=== PATIENT | male | born 1955 | race Caucasian/White ===

== ENCOUNTER 2019-07-21 08:22 | Day surgery (SDC) | payer BC, OTHER ==
[2019-07-20 13:39] VITALS: BMI 33.0
[2019-07-21] MEDS ORDERED: PROPOFOL 20 ML ONE (11:15)
[2019-07-21] MEDS ORDERED: ceFAZolin SODIUM 1 GM VIAL IVPB ONE (11:35)
[2019-07-21] MEDS ORDERED: IOHEXOL 300 MG/ML INFUS..BTL IV ONE (11:41)
[2019-07-21] MEDS ORDERED: PROMETHAZINE HCL 25 MG/1 ML VIAL IVPB PRN (12:36)
[2019-07-21] MEDS ORDERED: oxyCODONE HCL 5 MG TABLET PO PRN (12:36)
[2019-07-21] MEDS ORDERED: ONDANSETRON 4 MG/2 ML VIAL IVPUSH PRN (12:36)
--- NOTE | 2019-07-21 12:39 | OP ---
Operative Note - Note: Operative Date: 07/21/19 Pre-Operative Diagnosis: rt. hydronephrosis, rt. ureteral stone Operation: LULL WITH JJ STENT Post-Operative Diagnosis: Same as Pre-op Surgeon: Yessy Leon Anesthesia: General Specimens Removed: STONE FRAGMENTS AND URINE Estimated Blood Loss (mls): 10 Drains & Tubes with Location: 24CM 6F RT. JJ STENT Drains, Volume Out (mls): 0 Blood Volume Replaced (mls): 0 Fluid Volume Replaced (mls): 0 Operative Report Dictated: Yes
[2019-07-21] MEDS ORDERED: ACETAMINOPHEN 325 MG TABLET (FP) PO PRN (12:40)
--- NOTE | 2019-07-21 14:06 | PREOP ---
DATE OF ADMISSION: 07/21/2019 DATE OF DICTATION: 07/21/2019 HISTORY OF PRESENT ILLNESS: Patient is a 64-year-old male with right flank pain. He does have history of high blood pressure, COPD. He is allergic to IV CONTRAST. Patient also has urinary frequency, urgency, and nocturia x3. He has been complaining of right flank pain radiating to the right groin. DIAGNOSTIC DATA: A CAT scan of the kidneys revealed a right renal stone, a 9 mm located in the proximal ureter, and a 6 mm in the right lower calyx. There was also an 8-mm stone in the renal pelvis. The patient's BUN and creatinine are 11 over 0.7. His PSA is 0.2. PLAN: He is going to undergo a cystoscopy, right retrograde pyelogram, right ureteroscopic laser lithotripsy, and placement of a right JJ stent. The procedure has been explained to the patient in detail and he agrees. Liana [id number]
[2019-07-21 15:05] VITALS: TEMP 97.8
[2019-07-21 16:05] VITALS: BP 145/69; PULSE 70
--- NOTE | 2019-07-22 10:50 | OP ---
DATE OF OPERATION: 07/21/2019 PREOPERATIVE DIAGNOSIS: Right hydronephrosis, right ureteral stone. POSTOPERATIVE DIAGNOSIS: Right hydronephrosis, right ureteral stone. OPERATIVE PROCEDURE: Cystoscopy, right retrograde pyelogram, right ureteroscopy, right laser lithotripsy, right stone basketing, and placement of a right JJ stent. ANESTHESIA: General. DESCRIPTION OF PROCEDURE: Under above-stated anesthesia, patient was prepped and draped in the usual sterile manner. He was placed in the dorsal lithotomy position. Cystoscopy revealed a normal anterior urethra. Prostatic urethra revealed trilobar hypertrophy of the prostate. There was lateral lobe kissing. The bladder was entered; 200 mL of residual urine was drained. The bladder revealed a generalized hyperemia. There was also a grade 2 trabeculation throughout. Ureteral orifices were within normal limits with efflux of clear urine from the left. None was seen from the right. A Flexi-Tip was placed in the right ureteral orifice, and 10 mL of contrast was injected. This revealed complete blockage of the midportion of the upper ureter due to a 1-cm stone. A Glidewire was passed up the right renal unit. The cystoscope was removed. The ureteroscope was inserted. Ureteroscopy was then performed in the usual fashion. A stone was found in the right upper ureter. Using a 350 Holmium laser fiber at an energy of 1.5 and a rate of 15, the stone was fragmented into multiple fragments. Continuation of the ureteroscopy revealed a dilated right renal pelvis. No lesions or stones were seen. The ureteroscope was then removed. A 24-cm 6-Georgian JJ stent was left in place. X-rays confirmed good position of the stent. The bladder was emptied. The scope was removed. The patient tolerated the procedure well. He returned to the recovery room in good condition. Liana [id number]
--- NOTE | 2019-07-22 17:29 | PATH ---
Surgical Pathology Report Patient Name: SCOTT VALENCIA [facility]. Rec. #: [id number] /Age/Gender: 1955 (Age: 64) / M Account: [id number] Location: [facility] Taken: 07/21/2019 Received: 07/21/2019 Reported: 07/22/2019 Physicians: Yessy Leon M.D. Specimen(s) Received STONE FRAGMENTS Clinical History Hydronephrosis, stones Final Diagnosis STONE FRAGMENTS, REMOVAL: CLUSTERS OF POLARIZABLE CRYSTALLINE AND FRAGMENTS OF BENIGN UROTHELIAL MUCOSA ADMIXED WITH BLOOD. Electronically Signed Austin Obrien M.D. Gross Description Received in formalin labeled "stone fragments," is a 1.5 x 1.0 x 0.2 cm aggregate of red-brown blood clot. No definitive calculi are identified. The specimen is submitted in toto in one cassette. DL/07/21/2019 saudi/07/21/2019
== END 2019-07-21 15:50 | disposition home or self-care (01) ==
LOC: JASU-SURG 08:22
PROVIDERS: ATTEND Urology
PROC: 0TF68ZZ Fragmentation in Right Ureter, Via Natural or Artificial Opening Endoscopic (ICD-10-PCS; principal; 2019-07-21 10:00)
PROC: 0T768DZ Dilation of Right Ureter with Intraluminal Device, Via Natural or Artificial Opening Endoscopic (ICD-10-PCS; 2019-07-21 10:00)
DX: N20.1 Calculus of ureter (principal); N13.30 Unspecified hydronephrosis
CPT/HCPCS: 76000-TC-FY; 87086; 94760